=== PATIENT | male | born 2005 | race Caucasian/White ===

== ENCOUNTER → 2023-09-17 06:27 | Day surgery (SDC) | payer BC, SELFPAY | LOC: GI 06:27 | PROVIDERS: ATTENDING PHYSICIAN Internal Medicine Gastroenterology | DX: R19.7 Diarrhea, unspecified (principal); K64.8 Other hemorrhoids; K31.89 Other diseases of stomach and duodenum; R63.4 Abnormal weight loss | CPT/HCPCS: 45380; 43239; 88305; 88342 ==